=== PATIENT | female | born 1960 | race Caucasian/White ===

== ENCOUNTER → 2020-07-25 | Outpatient (CLI) | payer OTHER | END | disposition home or self-care (01) | LOC: LAB SHORT 17:20 → LAB 17:20 → LAB SHORT 07-28 13:20 | DX: L02.212 Cutaneous abscess of back [any part, except buttock and flank] (principal) | CPT/HCPCS: 87070; 87077; 87186; 87205 ==

== ENCOUNTER 2021-06-09 17:30 | Emergency (ER) | payer OTHER ==
[~2021-06-09] VITALS: Ht 162.6 cm; Wt 86.2 kg
[2021-06-09 19:22] LABS: Source, Urine Clean Catch
[2021-06-09 19:31] LABS: Appearance, Urine Hazy (Clear); Bilirubin, Urine Neg (Neg); Blood, Urine 3+ (Neg); Color, Urine Yellow (P-Yellow); Glucose Qualitative, Urine Neg (Neg); Ketones, Urine Neg (Neg); Leukocyte Esterase, Urine 2+ (Neg); Nitrite, Urine Pos (Neg); Protein, Urine 1+ (Neg); Urobilinogen, Urine NORM (Normal)
[2021-06-09 19:39] LABS: Bacteria Many /hpf; Red Blood Cells, Urine 0-2 /hpf (0-2); Squamous Epithelial Cells Few /hpf (Few); White Blood Cells, Urine 50-100 /hpf (0-5)
[2021-06-09] MEDS ORDERED: CEFP200 PO (19:49)
[2021-06-09] MEDS ORDERED: PARO30 PO (20:23)
[2021-06-09] MEDS ORDERED: EUTHYROX88 MCG PO (20:23)
== END 2021-06-09 20:26 | disposition home or self-care (01) ==
LOC: ER 17:30
PROVIDERS: Physician Assistant
DX: U07.1 COVID-19 (principal); N39.0 Urinary tract infection, site not specified; B96.20 Unspecified Escherichia coli [E. coli] as the cause of diseases classified elsewhere; F17.200 Nicotine dependence, unspecified, uncomplicated
CPT/HCPCS: 81001; 87077; 87086; 87186; 99284; A9270

== ENCOUNTER → 2021-07-02 | Outpatient (CLI) | payer OTHER ==
[~2021-07-02] MED LIST: CEFP200 PO; EUTHYROX88 MCG PO; PARO30 PO
== END | disposition home or self-care (01) ==
LOC: LAB SHORT 15:05 → LAB 15:05
DX: R30.9 Painful micturition, unspecified (principal)
CPT/HCPCS: 87077; 87086; 87186

== ENCOUNTER → 2023-09-22 | Outpatient (CLI) | payer OTHER | END | disposition home or self-care (01) | LOC: LAB SHORT 11:00 → LAB 11:00 | DX: R39.9 Unspecified symptoms and signs involving the genitourinary system (principal) | CPT/HCPCS: 87077; 87086; 87186 ==

== ENCOUNTER → 2023-11-17 | Outpatient (CLI) | payer OTHER | LOC: LAB SHORT 12:30 → LAB 12:30 | DX: R39.9 Unspecified symptoms and signs involving the genitourinary system (principal) | CPT/HCPCS: 87077; 87086; 87186 ==

== ENCOUNTER → 2025-09-04 | Outpatient (CLI) | payer OTHER ==
[2025-09-04 15:13] LABS: Source, Urine Clean Catch
[2025-09-04 18:58] LABS: Bilirubin, Urine Neg (Neg); Color, Urine Yellow (P-Yellow); Glucose Qualitative, Urine Neg (Neg); Ketones, Urine Neg (Neg); Leukocyte Esterase, Urine 1+ (Neg); Protein, Urine 1+ (Neg); Specific Gravity, Urine 1.010 (1.003-1.022); Urobilinogen, Urine NORM (Normal)
== END ==
LOC: LAB SHORT 15:12 → LAB 15:12
PROVIDERS: Family Medicine
DX: R30.0 Dysuria (principal)
CPT/HCPCS: 81001; 87077; 87086; 87186